=== PATIENT | female | born 1975 | race Two or more races ===

== ENCOUNTER → 2024-01-29 | Outpatient (CLI) | payer MEDICAID | END | disposition home or self-care (01) | LOC: XYW 14:45 | PROVIDERS: ATTEND Student in an Organized Health Care Education/Training Program | DX: Z01.818 Encounter for other preprocedural examination (principal); R94.31 Abnormal electrocardiogram [ECG] [EKG] | CPT/HCPCS: 93306 ==

== ENCOUNTER → 2024-05-23 | Outpatient (CLI) | payer MEDICAID ==
[~2024-05-23] VITALS: Ht 152.4 cm; Wt 89.8 kg
[2024-05-23] MEDS: ADENOSINE 75 MG in GIVE UN-DILUTED 0 ML IV ONE (10:53)
== END | disposition home or self-care (01) ==
LOC: XY 08:32
PROVIDERS: ATTEND Student in an Organized Health Care Education/Training Program
DX: Z01.810 Encounter for preprocedural cardiovascular examination (principal); R94.31 Abnormal electrocardiogram [ECG] [EKG]; E11.9 Type 2 diabetes mellitus without complications; E78.5 Hyperlipidemia, unspecified
CPT/HCPCS: 78452; 93017; A9500; J0153